=== PATIENT | female | born 1960 | race Two or more races ===

== ENCOUNTER 2024-08-01 12:18 | Emergency (ER) | payer MEDICAID, SELFPAY ==
[2024-08-01 12:19] VITALS: BP 150/67; PULSE 83; RESP 18; TEMP 36.8; O2SAT 98; BMI 29.9
--- NOTE | 2024-08-01 12:29 | EX.ED.DYSGE1 ---
HPI <JONO Guevara - Last Filed: 08/01/24 17:03> History of Present Illness Chief Complaint: Allergic Reaction Narrative Narrative: Patient presenting today with concerns for an allergic reaction. She took a dose of leftover minocycline this morning around 8:45 AM due to a pimple on her upper lip hoping that it would make it go away. She has taken this medication a few times in the past with no adverse effects. She reports that she then developed hives and feels itchy. She denies shortness of breath, wheezing, abdominal pain, nausea, and vomiting. She denies any new foods or exposures to known allergens. No other new medications. She has a PMH of T2DM. PFSH <JONO Guevara Last Filed: 08/01/24 17:03> PFSH Medical History no medical history Home Medications ?Medication ?Instructions ?Recorded ?Last Taken ?Type famotidine 10 mg tablet (Pepcid AC) 10 mg PO BID 4 days #8 tabs 08/01/24 Unknown Rx prednisone 20 mg tablet 40 mg (2 x 20 mg) PO DAILY 4 days 08/01/24 Unknown Rx #8 tabs Allergy/AdvReac Type Severity Reaction Status Date / Time bee venom protein (honey Allergy Anaphylaxis Verified 08/01/24 12:21 bee) (bee stings) Penicillins Allergy unknown Verified 08/01/24 12:21 Sulfa (Sulfonamide Allergy Hives Verified 08/01/24 12:21 Antibiotics) Family History no significant family his Surgical History no surgical history Social History Smoking Status: Former smoker ROS <JONO Guevara - Last Filed: 08/01/24 17:03> ROS ED Constitutional Constitutional ED: Denies chills or fever(s) Cardiovascular Cardiovascular: Denies chest pain Respiratory/Chest Respiratory/Chest: Denies dyspnea or wheezing Gastrointestinal Gastrointestinal: Denies nausea or vomiting Musculoskeletal Musculoskeletal: Denies arthralgias or myalgias Integumentary Reports rash Neurologic Neurologic: Denies weakness Allergic/Immunologic Allergic/Immunologic ED: Reports urticaria; Denies lip swelling, mouth swelling or tongue swelling EXAM <JONO Guevara Last Filed: 08/01/24 17:03> Physical Exam Const Vital Signs: 08/01/24 12:19 08/01/24 13:19 08/01/24 14:00 Temperature 98.2 F Temperature Source Oral Pulse Rate 83 68 Respiratory Rate 18 Blood Pressure 150/67 H 140/73 H 141/74 H Blood Pressure Mean 94 95 96 Pulse Ox 98 96 Oxygen Delivery Method Room Air Room Air 08/01/24 14:42 Temperature 98.2 F Temperature Source Pulse Rate 72 Respiratory Rate 20 H Blood Pressure 128/73 H Blood Pressure Mean 91 Pulse Ox 96 Oxygen Delivery Method Positive well nourished, well developed and no apparent distress General Appearance ED: well developed HEENT Reports normocephalic and head/scalp atraumatic HEENT Narrative: Normal posterior oropharynx, no angioedema Mouth ED: Yes moist mucous membranes normal Eyes PERRL and EOMs intact bilaterally Neck full ROM and supple Chest Wall inspection of chest normal Resp normal respiratory effort and clear to auscultation bilaterally Cardio regular rate and regular rhythm GI soft to palpation, non-tender, non-distended and no masses Back/Spine normal ROM and normal to inspection Extremity normal to inspection and full ROM Neuro oriented x3, CN's II-XII intact bilaterally, moves all extremities, no focal motor deficits and no sensory deficits noted Sensorium / Orientation: awake and alert Psych mental status grossly normal and thought process normal Skin no rashes or lesions noted and no wounds Skin Narrative: Scattered areas of urticaria to the upper extremities <Dr. Carlos Staton MD - Last Filed: 08/01/24 14:41> Physical Exam Const Vital Signs: 08/01/24 12:19 08/01/24 13:19 08/01/24 14:00 Temperature 98.2 F Temperature Source Oral Pulse Rate 83 68 Respiratory Rate 18 Blood Pressure 150/67 H 140/73 H 141/74 H Blood Pressure Mean 94 95 96 Pulse Ox 98 96 Oxygen Delivery Method Room Air Room Air 08/01/24 14:42 Temperature 98.2 F Temperature Source Pulse Rate 72 Respiratory Rate 20 H Blood Pressure 128/73 H Blood Pressure Mean 91 Pulse Ox 96 Oxygen Delivery Method JAMES <JONO Guevara - Last Filed: 08/01/24 17:03> [facility] Narrative Medical decision making narrative: Patient presenting today due to concerns for an allergic reaction. She took a minocycline she had leftover for acne on her face. She has taken this in the past. She then developed urticaria and feels itchy, prompting her to come in. She has no angioedema, she has no shortness of breath, wheezing, hoarseness, nausea, or vomiting. She was given Solu-Medrol, Benadryl, and Pepcid IV. On reexamination she reports significant improvement of her symptoms. She reports that her urticarial rash has completely gone away. Recommended she avoid tetracycline antibiotics. I will give her a prescription for prednisone, Pepcid, and she is to continue taking Benadryl. She will be discharged home in stable condition. I have personally performed a face to face assessment of the patient and have reviewed the MESFIN Note. I performed a substantive portion of the visit including all aspects of the following. My trujillo findings include: History is remarkable for hives and itching. This started after she took doxycycline. She is taken doxycycline in the past. She denies change in voice. Denies drooling. states the hives have improved since he gave her Benadryl at home. She has no wheezing or difficulty breathing. She denies orthostatic symptoms. She does have allergy to penicillin and sulfa. 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 Exam is patient has generalized urticaria. She does not believe she has a hoarse voice. She has no trouble swallowing. She has fullness in the submental area which apparently is unchanged. Trachea is midline. There is no inspiratory stridor. Lungs are close patient was much of breath sounds. Heart is regular. Rate is normal. No murmur, gallop or rub. Medical Decision Making patient with generalized allergic reaction with hives due to minocycline. Patient was treated with IV Benadryl, Pepcid and Solu-Medrol. Will reassess in 30 to 60 minutes. If symptoms worsen she will receive epinephrine. Other additions or changes: Epic improvement. She is discharged to home with prescription for H1 H2 sabas and prednisone. <Dr. Carlos Staton MD - Last Filed: 08/01/24 14:41> [facility] Narrative Medical decision making narrative: I have personally performed a face to face assessment of the patient and have reviewed the MESFIN Note. I performed a substantive portion of the visit including all aspects of the following. My trujillo findings include: History is remarkable for hives and itching. This started after she took doxycycline. She is taken doxycycline in the past. She denies change in voice. Denies drooling. states the hives have improved since he gave her Benadryl at home. She has no wheezing or difficulty breathing. She denies orthostatic symptoms. She does have allergy to penicillin and sulfa. 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 Exam is patient has generalized urticaria. She does not believe she has a hoarse voice. She has no trouble swallowing. She has fullness in the submental area which apparently is unchanged. Trachea is midline. There is no inspiratory stridor. Lungs are close patient was much of breath sounds. Heart is regular. Rate is normal. No murmur, gallop or rub. Medical Decision Making patient with generalized allergic reaction with hives due to minocycline. Patient was treated with IV Benadryl, Pepcid and Solu-Medrol. Will reassess in 30 to 60 minutes. If symptoms worsen she will receive epinephrine. Other additions or changes: Epic improvement. She is discharged to home with prescription for H1 H2 sabas and prednisone. Discharge Plan Triage Chief Complaint: Allergic Reaction ED Midlevel Provider: Deann Kate ED Provider: Carlos Staton Dx/Rx/DC Orders Clinical Impression: Allergic reaction, Elevated blood-pressure reading without diagnosis of hypertension Instructions: ED ADVERSE DRUG REACTION Allergic Prescriptions: New prednisone 20 mg tablet 40 mg PO DAILY 4 Days Qty: 8 0RF famotidine [Pepcid AC] 10 mg tablet 10 mg PO BID 4 Days Qty: 8 0RF Primary Care Provider: HORACIO OROZCO Referrals: NOT,DEFINED [Non-Staff] - Activity Restrictions/Additional Instructions: Take the medications I have prescribed, and also take Benadryl 25 mg 4 times daily as needed. Return for any other concerns or worsening symptoms. Print Language: Yoruba Disposition Disposition: Home, Self Care Discharge Date/Time: 08/01/24 14:52
[2024-08-01] MEDS: DiphenhydrAMINE 50 MG/ML Syringe 25 MG IV (12:34)
[2024-08-01] MEDS: MethylPREDNISolone 125 MG/2 ML Vial IV (12:35)
[2024-08-01] MEDS: Famotidine 200 MG/20 ML MDV 20 MG in 0.9% Normal Saline (Pres. free 8 ML 300 MG IV (12:40)
[2024-08-01 13:19] VITALS: BP 140/73; PULSE 68; O2SAT 96
[2024-08-01 14:00] VITALS: BP 141/74
[2024-08-01 14:42] VITALS: BP 128/73; PULSE 72; RESP 20; TEMP 36.8; O2SAT 96
== END 2024-08-01 14:52 | disposition home or self-care (01) ==
PROVIDERS: Emergency Provider Emergency Medicine; Visit Provider Emergency Medicine
DX: T78.40XA Allergy, unspecified, initial encounter (principal); E11.9 Type 2 diabetes mellitus without complications; Z87.891 Personal history of nicotine dependence; R03.0 Elevated blood-pressure reading, without diagnosis of hypertension; L50.9 Urticaria, unspecified
CPT/HCPCS: 96374; 96375; 99283; A4216